=== PATIENT | male | born 1995 | race Caucasian/White ===

== ENCOUNTER 2022-12-24 17:58 | Emergency (ER) | payer OTHER, SELFPAY ==
--- NOTE | ~2022-12-24 | CT_ITS ---
EXAMINATION: CT ORBIT WITH CONTRAST CLINICAL INFORMATION: Right eye pain COMPARISON: None available. TECHNIQUE: Multidetector volumetric imaging of the orbits performed after administration of 85 mL of Omnipaque 350 IV contrast. Coronal and sagittal reformatted images are obtained and reviewed. This CT examination was performed using dose optimization techniques as appropriate, variously including the following: *Automated exposure control *Adjustment of mA and/or kV according to patient size (this includes techniques or standardized protocols for targeted exams where dose is matched to indication/reason for exam; i.e. extremities or head) *Use of iterative reconstruction technique DLP: 184 mGy-cm FINDINGS: No maxillofacial fracture. The pterygoid plates are intact. The lamina papyracea are intact. The zygomatic arches are intact. The nasal bone is intact. The orbital rims are intact. The nasal septum deviates to the right. The infundibula and middle meati are patent. There is minimal opacification of the left ethmoid air cells. Small mucus retention cyst in the left maxillary sinus. The remaining paranasal sinuses are well aerated. The orbits appear unremarkable. The globes are symmetric and intact. The extraocular muscles are intact. No preseptal or post septal inflammation. The visualized intracranial structures are without acute abnormality. No abnormal enhancement seen. CT/CT orbit BI w IV con IMPRESSION: Unremarkable appearance of the orbits.
[2022-12-24 18:35] VITALS: BP 131/94; PULSE 92; RESP 18; TEMP 36.8; O2SAT 98; BMI 26.5
--- NOTE | 2022-12-24 18:35 | ED_ITS ---
HPI - Eye Problem General Chief complaint: Eye Problems <EVER Pat Last Filed: 12/24/22 18:40> Stated complaint: Unable to see from R eye, blurred vision, swollen <EVER Pat Last Filed: 12/24/22 18:40> Time Seen by Provider: 12/24/22 19:40 <EVER Pat Last Filed: 12/24/22 18:40> Source: patient <EVER Limon Last Filed: 12/24/22 23:08> Mode of arrival: ambulatory <EVER Limon Last Filed: 12/24/22 23:08> Limitations: no limitations <EVER Limon Last Filed: 12/24/22 23:08> History of Present Illness HPI Narrative: 27-year-old male without significant medical history presenting the emergency department complaints of right eye discomfort, he feels like he has a film overlying his right eye in he is complaining of blurred vision, he states that this started this morning, he reports slight discomfort with movement of eyes and he reports that his right upper eyelid appears more swollen than usual. He also reports that at times he sees black spots. He denies trauma to the area. Patient wears glasses however no contact lenses. He denies any head trauma. Patient denies chest pain, shortness of breath, nausea, vomiting, double vision, dizziness, headache, weakness, foreign body sensation. <EVER Limon Last Filed: 12/24/22 23:08> Related Data Home medications: Previous Rx's Medication Instructions Recorded erythromycin 5 mg/gram (0.5 %) eye 1 appl ophthalmic (eye) DAILY #3.5 12/24/22 ointment grams <EVER Pat Last Filed: 12/24/22 18:40> Allergies/adverse reactions: Allergies Allergy/AdvReac Type Severity Reaction Status Date / Time ondansetron [From Zofran] Allergy Unknown Verified 12/24/22 18:40 promethazine [From Phenergan] Allergy Unknown Verified 12/24/22 18:40 <EVER Pat Last Filed: 12/24/22 18:40> Review of Systems Review of Systems: Constitutional : No Weight loss, No Fever, No Chills, No Fatigue, No Malaise ENT/Mouth : No sore throat, No Rhinorrhea Eyes: + Eye Pain, No Swelling, No Redness Cardiovascular : No Chest Pain, No SOB, No Dyspnea on Exertion, No Orthopnea, No Edema, No Palpitations Respiratory : No Cough, No Sputum, No Wheezing Gastrointestinal : No Nausea, No Vomiting, No Diarrhea, No Constipation, No abdominal Pain, No Hematochezia, No Melena Genitourinary : No Dysuria, No Urinary Frequency, No Hematuria, Musculoskeletal : No joint pain, No Myalgias, No Joint Swelling Skin : No Skin Lesions, No rash Neuro : No Weakness, No Numbness, No Dizziness, No Headache Psych : No Anxiety/Panic, No Depression All other systems reviewed and are negative <EVER Limon - Last Filed: 12/24/22 23:08> Yes all other systems are reviewed and are negative <EVER Limon - Last Filed: 12/24/22 23:08> [facility] Past Medical History Attestation statement: The following information was validated with the patient. <EVER Limon - Last Filed: 12/24/22 23:08> Source: old records reviewed and nursing notes reviewed <EVER Limon - Last Filed: 12/24/22 23:08> Social History Social History: Social History Advance Directives: No Advance Directives Information Provided: No <EVER Pat - Last Filed: 12/24/22 18:40> Physical Exam Vital Signs: Vital Signs: Last Vital Signs Temp 98.3 F 12/24/22 18:35 Pulse 92 12/24/22 18:35 Resp 18 12/24/22 18:35 BP 131/94 H 12/24/22 18:35 Pulse Ox 98 12/24/22 18:35 O2 Del Method Room Air 12/24/22 18:35 BMI result Body Mass Index 26.5 <EVER Pat Last Filed: 12/24/22 18:40> Vital Signs: Last Vital Signs Temp 98.3 F 12/24/22 18:35 Pulse 92 12/24/22 18:35 Resp 18 12/24/22 18:35 BP 131/94 H 12/24/22 18:35 Pulse Ox 98 12/24/22 18:35 O2 Del Method Room Air 12/24/22 18:35 BMI result Body Mass Index 26.5 vss <EVER Limon - Last Filed: 12/24/22 23:08> Appearance: Alert.? Oriented X3.? No acute distress.? Head: Normocephalic, atraumatic, no step-offs or deformities Eyes: Pupils equal, round and reactive to light.?EOMI and slightly uncomfortable. Funduscopic examination unremarkable able to visualized vessels in all 4 directions, normal cup to disc ratio, no bulging of the disc. No visualized FB in eyes b/l. + Stye to R upper eyelid Pressure to L eye: 19 R eye: 16 ENT: Pharynx normal.? Neck: Normal inspection.? Neck supple.? CVS: Normal heart rate and rhythm.? Pulses normal.? Respiratory: No respiratory distress.? Breath sounds normal.? Abdomen: Soft and nontender.? Skin: Skin warm and dry.? Normal skin color.? Normal skin turgor.? Extremities: No lower extremity edema.? No calf ttp. 5/5 strength to bilateral upper and lower extremities Back: No midline tenderness, no C-spine tenderness, full range of motion, no CVA tenderness bilaterally Neuro: Oriented X 3.? No motor deficit.? No sensory deficit. CN 2-12 intact <EVER Limon - Last Filed: 12/24/22 23:08> Course Course Course Narrative: RME: 37yo M w/PMHx psoriasis arthritis c/o R eye pain, blurry vision, and seeing black specs since waking this AM. Wears contacts no glasses. Denies trauma, FB sensation R eye with upper eyelid stye, EOMI w/pain Visual acuity, Tetricaine & fluorecein ordered Full HPI, ROS and PE to be performed by primary ED provider. <EVER Pat - Last Filed: 12/24/22 18:40> Reevaluation(s) Reevaluation #1: Laboratory studies unremarkable. CT of bilateral orbits with IV contrast unremarkable. No signs of orbital cellulitis. Likely stye. No signs of periorbital cellulitis. Low suspicion for this. Fluorescein stain unremarkable. Will have him follow-up with the printing film stripper. Educated patient on diagnosis and treatment plan, answered all question, patient verbalizes understanding. At this time patient will be discharged home, advised to return with new or worsening symptoms. Educated on worrisome signs and symptoms and when to return. At this time I feel comfortable discharge home. <EVER Limon - Last Filed: 12/24/22 23:08> Time: 22:42 <EVER Limon - Last Filed: 12/24/22 23:08> Reevaluation #2: Vanc I did do a fluorescein stain upon patient leaving, there is a linear corneal abrasion noted at the 6 o'clock position of patient's right eye, likely secondary to patient rubbing his eye. Negative Анна sign no signs of corneal ulcer globe rupture. Patient able to open his eyes and says his vision is no longer blurred. He has a follow-up appointment with a printing film stripper tomorrow at 09:45. Patient feeling better. Happy with his care. <EVER Limon - Last Filed: 12/24/22 23:08> Time: 23:07 <EVER Limon - Last Filed: 12/24/22 23:08> Medications Administered Discontinued Medications Generic Name Dose Route Start Last Admin Trade Name Freq PRN Reason Stop Dose Admin Erythromycin 1 cm 12/24/22 22:41 12/24/22 23:02 Erythromycin Base 0.5% Oph Oin 1 Gm Tube EYE-RIGHT 12/24/22 22:42 1 cm ONCE ONE Administration Fluorescein Sodium 1 strip 12/24/22 18:35 12/24/22 20:16 Fluorescein Sodium Strip EYE-RIGHT 12/24/22 18:36 1 strip ONCE ONE Administration Iohexol 100 ml 12/24/22 22:05 12/24/22 22:06 Iohexol 350 Mg/Ml 100 Ml Infus..Btl IV 12/24/22 22:06 85 ml ONCE ONE Administration Tetracaine HCl 1 drop 12/24/22 18:35 12/24/22 20:16 Tetracaine Hcl/Pf 0.5% Oph Jaky 4 Ml Drops EYE-RIGHT 12/24/22 18:36 1 drop ONCE ONE Administration <EVER Pat - Last Filed: 12/24/22 18:40> Medications Administered Discontinued Medications Generic Name Dose Route Start Last Admin Trade Name Rebel PRN Reason Stop Dose Admin Erythromycin 1 cm 12/24/22 22:41 12/24/22 23:02 Erythromycin Base 0.5% Oph Oin 1 Gm Tube EYE-RIGHT 12/24/22 22:42 1 cm ONCE ONE Administration Fluorescein Sodium 1 strip 12/24/22 18:35 12/24/22 20:16 Fluorescein Sodium Strip EYE-RIGHT 12/24/22 18:36 1 strip ONCE ONE Administration Iohexol 100 ml 12/24/22 22:05 12/24/22 22:06 Iohexol 350 Mg/Ml 100 Ml Infus..Btl IV 12/24/22 22:06 85 ml ONCE ONE Administration Tetracaine HCl 1 drop 12/24/22 18:35 12/24/22 20:16 Tetracaine Hcl/Pf 0.5% Oph Jaky 4 Ml Drops EYE-RIGHT 12/24/22 18:36 1 drop ONCE ONE Administration <EVER Limon - Last Filed: 12/24/22 23:08> Medical Decision Making Medical Decision Making [facility] Narrative: 2040 27-year-old male presents with right-sided blurred vision, reporting film feeling above his eye, in swelling to right upper eyelid that started this morning. Physical exam significant for Pupils equal, round and reactive to light.?EOMI and slightly uncomfortable. Funduscopic examination unremarkable able to visualized vessels in all 4 directions, normal cup to disc ratio, no bulging of the disc. No visualized FB in eyes b/l. + Stye to R upper eyelid Pressure to L eye: 19 R eye: 16 This is likely a stye. Unlikely wet macular degeneration, acute closed angle glaucoma, optic venous or arterial occlusion. Will obtain CT scan to rule out orbital cellulitis although unlikely however patient does have discomfort with eye movements. Will rule out foreign body in eye with fluorescein stain. Plan at this time labs, imaging, fluorescein stain visual acuity. <EVER Limon - Last Filed: 12/24/22 23:08> Differential Diagnosis Differential Diagnoses: The differential diagnosis associated with the presentation includes <EVER Limon - Last Filed: 12/24/22 23:08> This is likely a stye. Unlikely wet macular degeneration, acute closed angle glaucoma, optic venous or arterial occlusion. Will obtain CT scan to rule out orbital cellulitis although unlikely however patient does have discomfort with eye movements. Will rule out foreign body in eye with fluorescein stain. <EVER Limon - Last Filed: 12/24/22 23:08> Admission/Observation Consideration of admission/observation: Escalation of care including admission/observation considered <EVER Limon - Last Filed: 12/24/22 23:08> Unlikely <EVER Limon - Last Filed: 12/24/22 23:08> Lab Data MDM Lab Attestation statement: I reviewed the patient's lab results. <EVER Limon - Last Filed: 12/24/22 23:08> Result Diagrams: 12/24/22 20:38 12/24/22 20:38 <EVER Pat - Last Filed: 12/24/22 18:40> Labs: Lab Results 12/24/22 12/24/22 Range/Units 20:38 20:38 WBC 8.4 (4.8-10.8) X10*3/uL RBC 5.63 (4.60-5.80) X10*6/uL Hgb 16.1 (14.0-18.0) g/dl Hct 47.6 (42.0-52.0) % MCV 84.5 (80.0-98.0) fL MCH 28.6 (27.0-33.0) pg MCHC 33.8 (31.0-36.0) g/dl RDW 13.2 (11.0-16.0) % Plt Count 281 (160-400) X10*3/uL MPV 9.6 (9.4-12.4) fL Immature Gran % (Auto) 0.4 (0.0-0.4) % Neut % (Auto) 56.5 (45-73) % Lymph % (Auto) 32.1 (20-40) % [place] % (Auto) 7.1 (2-11) % Eos % (Auto) 3.3 (0-4) % Baso % (Auto) 0.6 (0-2) % Lymph # (Auto) 2.7 (1.2-4.9) X10*3/uL [place] # (Auto) 0.6 (0.1-1.2) X10*3/uL Eos # (Auto) 0.3 (0.0-0.4) X10*3/uL Baso # (Auto) 0.1 (0.0-0.2) X10*3/uL Abs Immat Gran (auto) 0.03 (0.00-0.03) X10*3/uL Absolute Neuts (auto) 4.8 (2.0-8.3) x10*3/uL Absolute Nucleated RBC 0.000 (0.0-0.012) X10*3/uL Nucleated RBC % (auto) 0.0 (0.0-0.2) /100WBC Sodium 141 (135-145) mmol/L Potassium 3.7 (3.3-5.1) mmol/L Chloride 106 (96-108) mmol/L Carbon Dioxide 26 (22-29) mmol/L Anion Gap 13 (12-20) BUN 9 (9-16) mg/dL Creatinine 0.79 (0.5-1.4) mg/dL Estim Creat Clear Calc 111.0 Estimated GFR > 60 Random Glucose 103 (60-115) mg/dL Calcium 9.6 (8.4-10.2) mg/dL Total Bilirubin 0.4 (0.0-1.0) mg/dL AST 27 (5-37) U/L ALT 41 H (0-40) U/L Alkaline Phosphatase 82 (39-117) U/L Total Protein 7.7 (6.5-8.0) g/dL Albumin 4.8 (3.5-5.0) g/dL <EVER Pat - Last Filed: 12/24/22 18:40> Lab Results 12/24/22 12/24/22 Range/Units 20:38 20:38 WBC 8.4 (4.8-10.8) X10*3/uL RBC 5.63 (4.60-5.80) X10*6/uL Hgb 16.1 (14.0-18.0) g/dl Hct 47.6 (42.0-52.0) % MCV 84.5 (80.0-98.0) fL MCH 28.6 (27.0-33.0) pg MCHC 33.8 (31.0-36.0) g/dl RDW 13.2 (11.0-16.0) % Plt Count 281 (160-400) X10*3/uL MPV 9.6 (9.4-12.4) fL Immature Gran % (Auto) 0.4 (0.0-0.4) % Neut % (Auto) 56.5 (45-73) % Lymph % (Auto) 32.1 (20-40) % [place] % (Auto) 7.1 (2-11) % Eos % (Auto) 3.3 (0-4) % Baso % (Auto) 0.6 (0-2) % Lymph # (Auto) 2.7 (1.2-4.9) X10*3/uL [place] # (Auto) 0.6 (0.1-1.2) X10*3/uL Eos # (Auto) 0.3 (0.0-0.4) X10*3/uL Baso # (Auto) 0.1 (0.0-0.2) X10*3/uL Abs Immat Gran (auto) 0.03 (0.00-0.03) X10*3/uL Absolute Neuts (auto) 4.8 (2.0-8.3) x10*3/uL Absolute Nucleated RBC 0.000 (0.0-0.012) X10*3/uL Nucleated RBC % (auto) 0.0 (0.0-0.2) /100WBC Sodium 141 (135-145) mmol/L Potassium 3.7 (3.3-5.1) mmol/L Chloride 106 (96-108) mmol/L Carbon Dioxide 26 (22-29) mmol/L Anion Gap 13 (12-20) BUN 9 (9-16) mg/dL Creatinine 0.79 (0.5-1.4) mg/dL Estim Creat Clear Calc 111.0 Estimated GFR > 60 Random Glucose 103 (60-115) mg/dL Calcium 9.6 (8.4-10.2) mg/dL Total Bilirubin 0.4 (0.0-1.0) mg/dL AST 27 (5-37) U/L ALT 41 H (0-40) U/L Alkaline Phosphatase 82 (39-117) U/L Total Protein 7.7 (6.5-8.0) g/dL Albumin 4.8 (3.5-5.0) g/dL <EVER Limon - Last Filed: 12/24/22 23:08> Independent Interpretation I performed an independent interpretation of an: CT Scan <EVER Limon - Last Filed: 12/24/22 23:08> Radiology Impression Discussion of test interpretation with radiology: I have reviewed the radiologist's reading. <EVER Limon - Last Filed: 12/24/22 23:08> Core Measures AMI core measures followed: Yes <EVER Limon - Last Filed: 12/24/22 23:08> Measure exclusions: not indicated <EVER Limon - Last Filed: 12/24/22 23:08> Critical Care Time Critical Care Time Critical Care Time: No <EVER Limon - Last Filed: 12/24/22 23:08> Discharge Plan Discharge Clinical Impression: Hordeolum eyelid, Discomfort of eye, Corneal abrasion <EVER Pat - Last Filed: 12/24/22 18:40> Patient Disposition: Home, Self-Care <EVER Pat - Last Filed: 12/24/22 18:40> Instructions: Stye (ED), Eye Pain (ED) <EVER Pat - Last Filed: 12/24/22 18:40> Additional Instructions: Take your medications as prescribed. If you were prescribed antibiotics today, it is important that you take your medication to their entirety, do not skip any doses, do not finish them early. Follow-up with your primary care provider this week. Return to the emergency department with new or worsening symptoms. Such as fevers, chills, chest pain, shortness of breath, nausea, vomiting, dizziness, headache, vision changes, lethargy In case of emergency call 911 Please only wear glasses do not wear any contact lenses. Please follow-up with ophthalmology tomorrow. Return with any new or worsening symptoms such as worsening pain, double vision, worsening vision, headache, vision changes, dizziness or weakness. Your laboratory studies and imaging was unremarkable. Apply warm compresses to the area CT/CT orbit BI w IV con IMPRESSION: Unremarkable appearance of the orbits. ? <EVER Pat - Last Filed: 12/24/22 18:40> Prescriptions: New erythromycin 5 mg/gram (0.5 %) ointment 1 appl ophthalmic (eye) DAILY Qty: 3.5 0RF <EVER Pat - Last Filed: 12/24/22 18:40> Referrals: Dez Dolan [Physician] - 1 day <EVER Pat - Last Filed: 12/24/22 18:40> Stand Alone Forms: Work/School Release <EVER Pat - Last Filed: 12/24/22 18:40>
[2022-12-24] MEDS: Fluorescein Sodium STRIP 1 STRIP EYE-RIGHT (20:16)
[2022-12-24] MEDS: Tetracaine HCl/PF 0.5% Oph Sol 4 ML DROPS 1 DROP EYE-RIGHT (20:16)
[2022-12-24 20:44] LABS: MANUAL DIFF FLAG NO
[2022-12-24 20:51] LABS: Basophils Absolute Auto 0.1 X10*3/uL (0.0-0.2); Basophils Percent Auto 0.6 % (0-2); Eosinophils Absolute Auto 0.3 X10*3/uL (0.0-0.4); Eosinophils Percent Auto 3.3 % (0-4); Hematocrit 47.6 % (42.0-52.0); Hemoglobin 16.1 g/dl (14.0-18.0); Imm Gran Abs Auto 0.03 X10*3/uL (0.00-0.03); Imm Gran Pct Auto 0.4 % (0.0-0.4); Lymphocytes Absolute Auto 2.7 X10*3/uL (1.2-4.9); Lymphocytes Percent Auto 32.1 % (20-40); Mean Corpuscular HGB Conc 33.8 g/dl (31.0-36.0); Mean Corpuscular Hemoglobin 28.6 pg (27.0-33.0); Mean Corpuscular Volume 84.5 fL (80.0-98.0); Mean Platelet Volume 9.6 fL (9.4-12.4); Monocytes Absolute Auto 0.6 X10*3/uL (0.1-1.2); Monocytes Percent Auto 7.1 % (2-11); Neutrophils Absolute Auto 4.8 x10*3/uL (2.0-8.3); Neutrophils Percent Auto 56.5 % (45-73); Platelet Count 281 X10*3/uL (160-400); Red Blood Count 5.63 X10*6/uL (4.60-5.80); Red Cell Distribution Width 13.2 % (11.0-16.0); White Blood Count 8.4 X10*3/uL (4.8-10.8)
[2022-12-24 21:12] LABS: Alanine Aminotransferase 41 U/L (0-40); Albumin Level 4.8 g/dL (3.5-5.0); Alkaline Phosphatase 82 U/L (39-117); Anion Gap 13 (12-20); Aspartate Amino Transferase 27 U/L (5-37); Bilirubin Total 0.4 mg/dL (0.0-1.0); Blood Urea Nitrogen 9 mg/dL (9-16); Calcium 9.6 mg/dL (8.4-10.2); Carbon Dioxide 26 mmol/L (22-29); Chloride 106 mmol/L (96-108); Estimated Glomerular Filt Rate > 60; Glucose Random 103 mg/dL (60-115); Potassium 3.7 mmol/L (3.3-5.1); Sodium 141 mmol/L (135-145); Total Protein 7.7 g/dL (6.5-8.0)
[2022-12-24] MEDS: iohexoL 350 MG/ML 100 ML INFUS..BTL IV (22:06)
[2022-12-24] MEDS: Erythromycin Base 0.5% Oph Oin 1 GM TUBE 1 CM EYE-RIGHT (23:02)
== END 2022-12-24 23:14 | disposition home or self-care (01) ==
PROVIDERS: Physician Assistant; Emergency Provider Emergency Medicine Emergency Medical Services; PCP Pediatrics
DX: H00.011 Hordeolum externum right upper eyelid (principal); S05.01XA Injury of conjunctiva and corneal abrasion without foreign body, right eye, initial encounter; X58.XXXA Exposure to other specified factors, initial encounter; Y93.9 Activity, unspecified; Y92.9 Unspecified place or not applicable; Y99.9 Unspecified external cause status
CPT/HCPCS: 36415; 70481; 80053; 85025; 99283; 99284; Q9967

== ENCOUNTER 2023-07-07 17:32 | Emergency (ER) | payer OTHER, SELFPAY ==
--- NOTE | ~2023-07-07 | US_ITS ---
EXAMINATION: US ABDOMEN LIMITED CLINICAL INFORMATION: Right upper quadrant pain COMPARISON: None available. TECHNIQUE: Real-time imaging of the right upper quadrant abdominal viscera. FINDINGS: PANCREAS: Normal. LIVER: Normal. The liver is normal in size. The liver contour is normal. Parenchymal echogenicity is normal. No focal hepatic lesion. There is no intrahepatic biliary duct dilatation seen. GALLBLADDER: Normal. The gallbladder is physiologically distended without evidence of stones, sludge, polyps, wall thickening or pericholecystic fluid. COMMON BILE DUCT: Normal in caliber measuring 0.23 cm in diameter. RIGHT KIDNEY: Normal. No hydronephrosis. No renal calculi or focal parenchymal lesions. The kidney measures 10.1 cm in maximum dimension. FREE FLUID: None. US/US abdomen limited IMPRESSION: Normal right upper quadrant ultrasound
--- NOTE | 2023-07-07 17:33 | ED.ABDPAIN ---
HPI - Abdominal Pain General Chief Complaint: Abdominal Pain Stated Complaint: abd pain Time Seen by Provider: 07/07/23 17:53 Source: patient Mode of arrival: ambulatory Limitations: no limitations History of Present Illness HPI narrative: Patient comes to the emergency room complaining of chronic abdominal pain. Patient states he has a combination of very soft bowel movements and diarrhea. Patient states that he has had colonoscopy in the past, no concrete diagnosis. Patient tried dicyclomine for IBS, patient could not tolerate the medication, patient kept losing consciousness with this medication. Patient denies any fever any chills. However, patient states that over the last week, the pain has gradually been getting much worse to the point that his crawled up in bed most of the time and unable to go to work. Patient denies bloody stools. Patient was seen at [facility] last week, states he had a urinalysis, blood work and a CT scan which was normal. Today, patient states the pain is a bit worse in the epigastric right upper quadrant area. Related Data Previous Rx's Medication Instructions Recorded erythromycin 5 mg/gram (0.5 %) eye 1 appl ophthalmic (eye) DAILY #3.5 12/24/22 ointment grams hyoscyamine sulfate 0.125 mg tablet 0.125 mg PO QID PRN dyspepsia #20 07/07/23 tabs Allergies Allergy/AdvReac Type Severity Reaction Status Date / Time ondansetron [From Zofran] Allergy Intermediate Vomiting Verified 07/07/23 17:35 promethazine [From Phenergan] Allergy Intermediate Itching Verified 07/07/23 17:35 Review of Systems Review of Systems Constitutional : No Weight loss, No Fever, No Chills, No Night Sweats, No Fatigue, No Malaise ENT/Mouth : No Hearing loss, No Ear Pain, No Nasal Congestion, No Sinus Pain, No Hoarseness, No sore throat, No Rhinorrhea, No Swallowing Difficulty Eyes: No Eye Pain, No Swelling, No Redness, No Foreign Body, No Discharge, No Vision Changes Cardiovascular : No Chest Pain, No SOB, No Dyspnea on Exertion, No Orthopnea, No Edema, No Palpitations Respiratory : No Cough, No Sputum, No Wheezing, No Smoke Exposure, No Dyspnea Gastrointestinal : Complaining of intermittent chronic nausea, soft bowel movements and watery diarrhea, diffuse abdominal pain cramping, today worse in the right upper quadrant/epigastric area Genitourinary : no irregular bleeding, No Dysuria, No Urinary Frequency, No Hematuria, No Urinary Incontinence, No Urgency, No Flank Pain, No Urinary Flow Changes, No Hesitancy Musculoskeletal : No joint pain, No Myalgias, No Joint Swelling Skin : No Skin Lesions, No rash Neuro : No Weakness, No Numbness, No Paresthesias, No Loss of Consciousness, No Dizziness, No Headache Psych : No Anxiety/Panic, No Depression, No SI/HI/AH/VH, No Social Issues, Heme/Lymph: No Bruising, No Bleeding,No Lymphadenopathy Endocrine : No Polyuria, No Polydipsia, No Temperature Intolerance [facility] Past Medical History Medical History (Updated 07/07/23 @ 19:50 by Rossy Bolaños MD) Psoriasis Social History Social History Smoked in Last 30 Days: No Use of substances other than those prescribed or required for medical reasons: Yes Substance Use Type: Crack/Cocaine Advance Directives: No Advance Directives Information Provided: No Physical Exam ED Vital Signs: Vital Signs - 24 hr 07/07/23 17:35 07/07/23 19:27 Temperature 97.5 F 98.4 F Pulse Rate 101 H 91 Respiratory Rate 18 18 Blood Pressure 130/97 H 125/86 Pulse Oximetry 98 96 Oxygen Delivery Method Room Air Room Air BMI result Body Mass Index 25.8 Const Other: Appearance: Alert. Oriented X3. No acute distress. Well-appearing Eyes: Pupils equal, round and reactive to light. ENT: Pharynx normal. Neck: Normal inspection. Neck supple. No lymph nodes noted. No crepitus CVS: Normal heart rate and rhythm. Pulses normal. Normal S1 and S2 Respiratory: No respiratory distress. Breath sounds normal. No Wheezing. No rales Abdomen: Soft mild discomfort throughout the entire abdomen, seemed to be worse in epigastric and right upper quadrant area, No rigidity. No distention. Skin: Skin warm and dry. Normal skin color. Normal skin turgor. Extremities: No lower extremity edema. No Lacerations. No Rash Neuro: Oriented X 3. No motor deficit. No sensory deficit. Moving all extremities. No slurred speech. CN 2 through 12 grossly intact Psych: calm, cooperative, normal affect Course Course Course Narrative: RME: 28yo M w/no sig PMHx presenting to the ED c/o abdominal pain worsening over the past few months. Admits was seen at [facility] ED last week, had CT scan/labs/UA that were unremarkable. Has GI f/u on the . +nausea and diarrhea & bloating. denies constipation, urinary sx Labs, UA ordered Full HPI, ROS and PE to be performed by primary ED provider. Medical Decision Making Medical Decision Making [facility] Narrative: -we have requested patient is from [facility], pending -patient receiving IV fluids, morphine, and phenobarb/hioscyamine/atropine 10 mL p.o. -discussed with the patient that he has a lot of GI symptoms that resemble celiac disease. Patient has history of psoriatic arthritis, patient is more prone to out to immune disorders. Discussed with the patient to try a gluten free diet until he sees Gastroenterology. -patient has an appointment pending for a colonoscopy and upper endoscopy. It is already scheduled. -my interpretation of labs: No acute abnormality seen hematology and chemistry. Ultrasound does not show any obvious abnormality. -patient's urine toxicology is positive for fentanyl and cocaine. Patient states that he does not use any drugs. -as mentioned above, patient has a GI consult pending Differential Diagnosis Differential Diagnoses: The differential diagnosis associated with the presentation includes (Pancreatitis, cholecystitis, celiac disease, IBS, gastroenteritis) Admission/Observation Consideration of admission/observation: Escalation of care including admission/observation considered (Given patient's symptoms, on arrival, admission was considered) Lab Data [facility] Lab Attestation statement: I reviewed the patient's lab results. 07/07/23 17:47 07/07/23 17:47 Labs: Lab Results 07/07/23 07/07/23 Range/Units 17:47 18:10 WBC 11.1 H (4.8-10.8) X10*3/uL RBC 5.58 (4.60-5.80) X10*6/uL Hgb 15.9 (14.0-18.0) g/dl Hct 47.3 (42.0-52.0) % MCV 84.8 (80.0-98.0) fL MCH 28.5 (27.0-33.0) pg MCHC 33.6 (31.0-36.0) g/dl RDW 13.2 (11.0-16.0) % Plt Count 384 D (160-400) X10*3/uL MPV 9.4 (9.4-12.4) fL Immature Gran % (Auto) 1.0 H (0.0-0.4) % Neut % (Auto) 65.1 (45-73) % Lymph % (Auto) 23.5 (20-40) % Coal % (Auto) 7.3 (2-11) % Eos % (Auto) 2.5 (0-4) % Baso % (Auto) 0.6 (0-2) % Lymph # (Auto) 2.6 (1.2-4.9) X10*3/uL Coal # (Auto) 0.8 (0.1-1.2) X10*3/uL Eos # (Auto) 0.3 (0.0-0.4) X10*3/uL Baso # (Auto) 0.1 (0.0-0.2) X10*3/uL Abs Immat Gran (auto) 0.11 H (0.00-0.03) X10*3/uL Absolute Neuts (auto) 7.2 (2.0-8.3) x10*3/uL Absolute Nucleated RBC 0.000 (0.0-0.012) X10*3/uL Nucleated RBC % (auto) 0.0 (0.0-0.2) /100WBC Sodium 139 (135-145) mmol/L Potassium 3.6 (3.3-5.1) mmol/L Chloride 105 (96-108) mmol/L Carbon Dioxide 24 (22-29) mmol/L Anion Gap 14 (12-20) BUN 11 (9-16) mg/dL Creatinine 0.83 (0.5-1.4) mg/dL Estim Creat Clear Calc 104.7 Estimated GFR > 60 Random Glucose 107 (60-115) mg/dL Calcium 9.4 (8.4-10.2) mg/dL Magnesium 2.0 (1.6-2.6) mg/dL Total Bilirubin 0.3 (0.0-1.0) mg/dL Direct Bilirubin 0.1 (0.0-0.5) mg/dL AST 18 (5-37) U/L ALT 37 (0-40) U/L Alkaline Phosphatase 93 (39-117) U/L Total Protein 8.1 H (6.5-8.0) g/dL Albumin 4.5 (3.5-5.0) g/dL Lipase 23 (8-78) U/L Urine Color Yellow Urine Appearance Turbid Urine pH 7.0 (5.0-9.0) Ur Specific [place] 1.020 (1.005-1.025) Urine Protein Negative (Neg-Trace) mg/dL Urine Glucose (UA) Negative (Negative) mg/dL Urine Ketones Negative (Negative) mg/dL Urine Blood Negative (Negative) Urine Nitrite Negative (Negative) Ur Leukocyte Esterase Trace H (Negative) Urine RBC 3-5 H (0-2) /HPF Urine WBC 0-5 (0-5) /HPF Ur Squamous Epith Cells 3-5 (0-2) /HPF Urine Bacteria Trace (None Seen) Hyaline Casts 0-2 (0-2) /LPF Urine Opiates Screen Not Detected (Not Detect) Urine Fentanyl Screen POSITIVE H (Not Detect) Ur Barbiturates Screen Not Detected (Not Detect) Ur Phencyclidine Scrn Not Detected (Not Detect) Ur Amphetamines Screen Not Detected (Not Detect) U Benzodiazepines Scrn Not Detected (Not Detect) Urine Cocaine Screen POSITIVE H (Not Detect) U Marijuana (THC) Screen Not Detected (Not Detect) Independent Interpretation I performed an independent interpretation of an: Ultrasound Radiology Impression Discussion of test interpretation with radiology: I have reviewed the radiologist's reading. Radiologist Impression: FINDINGS: PANCREAS: Normal. LIVER: Normal. The liver is normal in size. The liver contour is normal. Parenchymal echogenicity is normal. No focal hepatic lesion. There is no intrahepatic biliary duct dilatation seen. GALLBLADDER: Normal. The gallbladder is physiologically distended without evidence of stones, sludge, polyps, wall thickening or pericholecystic fluid. COMMON BILE DUCT: Normal in caliber measuring 0.23 cm in diameter. RIGHT KIDNEY: Normal. No hydronephrosis. No renal calculi or focal parenchymal lesions. The kidney measures 10.1 cm in maximum dimension. FREE FLUID: None. US/US abdomen limited IMPRESSION: Normal right upper quadrant ultrasound Medications Administered Discontinued Medications Generic Name Dose Route Start Last Admin Trade Name Freq PRN Reason Stop Dose Admin Belladonna Alkaloids/Phenobarbital 10 ml 11/05/23 18:08 07/07/23 18:43 Phenobarb/Hyoscy/Atropine/Scop 10 Ml Elixir PO 07/07/23 18:09 10 ml ONCE ONE Administration Sodium Chloride 1,000 mls @ 999 mls/hr 07/07/23 18:08 07/07/23 18:45 Ns IVCONT 07/07/23 19:08 999 mls/hr .Q1H1M ONE Administration Morphine Sulfate 4 mg 07/07/23 18:08 07/07/23 18:44 Morphine Sulfate 4 Mg/Ml Cartridge IVPUSH 07/07/23 18:09 4 mg ONCE ONE Administration Protocol Critical Care Time Critical Care Time Critical Care Time: Yes Total Critical Care Time: 45 Attestation: I have personally provided critical care time. Time includes review of lab data, radiology results, discussion with consultants, and monitoring for potential decompensation. Intervention performed as documented. Discharge Plan Discharge Clinical Impression: Chronic abdominal pain Patient Disposition: Home, Self-Care Instructions: Abdominal Pain (ED), Gluten-Free Diet (ED) Additional Instructions: Please try a strict gluten free diet. Please follow-up with your primary care physician tomorrow. If you have any worsening or new symptoms, please return to the emergency room or call 911 Prescriptions: New hyoscyamine sulfate 0.125 mg tablet 0.125 mg PO QID PRN (Reason: dyspepsia) Qty: 20 0RF No Action erythromycin 5 mg/gram (0.5 %) ointment 1 appl ophthalmic (eye) DAILY Qty: 3.5 0RF
[2023-07-07 17:35] VITALS: BP 130/97; PULSE 101; RESP 18; TEMP 36.4; O2SAT 98; BMI 25.8
[2023-07-07 17:53] LABS: MANUAL DIFF FLAG NO
[2023-07-07 17:54] LABS: Basophils Absolute Auto 0.1 X10*3/uL (0.0-0.2); Basophils Percent Auto 0.6 % (0-2); Eosinophils Absolute Auto 0.3 X10*3/uL (0.0-0.4); Eosinophils Percent Auto 2.5 % (0-4); Hematocrit 47.3 % (42.0-52.0); Hemoglobin 15.9 g/dl (14.0-18.0); Imm Gran Abs Auto 0.11 X10*3/uL (0.00-0.03); Lymphocytes Absolute Auto 2.6 X10*3/uL (1.2-4.9); Lymphocytes Percent Auto 23.5 % (20-40); Mean Corpuscular HGB Conc 33.6 g/dl (31.0-36.0); Mean Corpuscular Hemoglobin 28.5 pg (27.0-33.0); Mean Corpuscular Volume 84.8 fL (80.0-98.0); Mean Platelet Volume 9.4 fL (9.4-12.4); Monocytes Absolute Auto 0.8 X10*3/uL (0.1-1.2); Monocytes Percent Auto 7.3 % (2-11); Neutrophils Absolute Auto 7.2 x10*3/uL (2.0-8.3); Neutrophils Percent Auto 65.1 % (45-73); Platelet Count 384 X10*3/uL (160-400); Red Blood Count 5.58 X10*6/uL (4.60-5.80); Red Cell Distribution Width 13.2 % (11.0-16.0); White Blood Count 11.1 X10*3/uL (4.8-10.8)
[2023-07-07 18:12] LABS: Alanine Aminotransferase 37 U/L (0-40); Albumin Level 4.5 g/dL (3.5-5.0); Alkaline Phosphatase 93 U/L (39-117); Anion Gap 14 (12-20); Aspartate Amino Transferase 18 U/L (5-37); Bilirubin Direct 0.1 mg/dL (0.0-0.5); Bilirubin Total 0.3 mg/dL (0.0-1.0); Blood Urea Nitrogen 11 mg/dL (9-16); Calcium 9.4 mg/dL (8.4-10.2); Carbon Dioxide 24 mmol/L (22-29); Chloride 105 mmol/L (96-108); Creatinine Clr Calc Pharmacy 104.7; Estimated Glomerular Filt Rate > 60; Glucose Random 107 mg/dL (60-115); Lipase 23 U/L (8-78); Potassium 3.6 mmol/L (3.3-5.1); Sodium 139 mmol/L (135-145); Total Protein 8.1 g/dL (6.5-8.0)
[2023-07-07 18:19] LABS: Appearance Urine Turbid; Color Urine Yellow; Glucose Urine UA Negative (Negative); Leukocyte Esterase Urine Trace (Negative); Nitrite Urine Negative (Negative); UMIC TRIGGER UACC YES; Urine Blood Negative (Negative); Urine Ketones Negative (Negative); Urine Protein Negative (Neg-Trace)
[2023-07-07 18:29] LABS: Bacteria Urine Trace (None Seen); Hyaline Casts Urine 0-2 /LPF (0-2); WBC Urine 0-5 /HPF (0-5)
[2023-07-07 18:30] LABS: Amphetamine Screen Urine Not Detected (Not Detect); Barbiturates, Urine Not Detected (Not Detect); Benzodiazepines Screen Urine Not Detected (Not Detect); Cannabinoid Screen Urine Not Detected (Not Detect); Cocaine Screen Urine POSITIVE (Not Detect); Fentanyl, urine POSITIVE (Not Detect); Opiate Screen Urine Not Detected (Not Detect); Phencyclidine Screen Urine Not Detected (Not Detect)
[2023-07-07] MEDS: PHENobarb/Hyoscy/Atropine/Scop 10 ML ELIXIR PO (18:43)
[2023-07-07] MEDS: Morphine Sulfate 4 MG/ML CARTRIDGE IVPUSH (18:44)
[2023-07-07] MEDS: 0.9 % Sodium Chloride 1,000 ML 999 ML IVCONT (18:45)
[2023-07-07 19:27] VITALS: BP 125/86; PULSE 91; RESP 18; TEMP 36.9; O2SAT 96
--- NOTE | 2023-07-07 19:30 | PC.NURSE ---
patient reports pain decreased with pain medication administration. Fluids running at this time. Patient ambulated independently to bathroom with IV pole
--- NOTE | 2023-07-07 19:31 | PC.NURSE ---
late entry: 20g Iv placed in RAC
[2023-07-07 20:20] VITALS: BP 112/81; PULSE 91; RESP 16; TEMP 36.7; O2SAT 98
== END 2023-07-07 20:29 | disposition home or self-care (01) ==
PROVIDERS: Physician Assistant; Emergency Provider Emergency Medicine; PCP Pediatrics
DX: R10.11 Right upper quadrant pain (principal); R19.7 Diarrhea, unspecified; L40.9 Psoriasis, unspecified; Z79.899 Other long term (current) drug therapy
CPT/HCPCS: 36415; 76705; 80048; 80076; 80307; 81001; 83690; 83735; 85025; 96361; 96374; 99285; J2270

== ENCOUNTER 2025-08-09 23:03 | Emergency (ER) | payer OTHER, SELFPAY ==
--- NOTE | ~2025-08-09 | XR_ITS ---
CLINICAL HISTORY: chest pain 2 view chest x-ray Comparison: None provided Findings: No consolidation, pneumothorax, or pleural effusion. Cardiac silhouette within normal limits. Imaged osseous structures are unremarkable for technique. IMPRESSION: No consolidation. This document has been electronically signed by: Will Vyas MD on 08/10/2025 00:20:47
--- NOTE | 2025-08-09 23:05 | ECG_ITS ---
Test Reason : CP Blood Pressure : */* mmHG Vent. Rate : 78 BPM Atrial Rate : 78 BPM P-R Int : 160 ms QRS Dur : 80 ms QT Int : 344 ms P-R-T Axes : 44 7 41 degrees QTcB Int : 392 ms Normal sinus rhythm Normal ECG No previous ECGs available Referred By: Generic ED Physician Electronically Signed By: JESSICA MICHELLE MD
[2025-08-09 23:16] VITALS: BP 140/95; PULSE 84; RESP 20; TEMP 36.2; O2SAT 99; BMI 26.6
[2025-08-09 23:31] LABS: MANUAL DIFF FLAG NO
[2025-08-09 23:33] LABS: Hematocrit 43.6 % (42.0-52.0); Hemoglobin 15.0 g/dl (14.0-18.0); Imm Gran Abs Auto 0.02 X10*3/uL (0.00-0.03); Imm Gran Pct Auto 0.2 % (0.0-0.4); Lymphocytes Absolute Auto 3.0 X10*3/uL (1.2-4.9); Mean Corpuscular HGB Conc 34.4 g/dl (31.0-36.0); Mean Corpuscular Hemoglobin 29.5 pg (27.0-33.0); Mean Corpuscular Volume 85.7 fL (80.0-98.0); NRBC Abs Auto 0.000 X10*3/uL (0.0-0.012); NRBC Pct Auto 0.0 /100WBC (0.0-0.2); Platelet Count 328 X10*3/uL (160-400); Red Blood Count 5.09 X10*6/uL (4.60-5.80); White Blood Count 8.1 X10*3/uL (4.8-10.8)
[2025-08-09 23:48] LABS: Alanine Aminotransferase 53 U/L (0-40); Albumin Level 4.8 g/dL (3.5-5.0); Alkaline Phosphatase 91 U/L (39-117); Anion Gap 12 (12-20); Aspartate Amino Transferase 31 U/L (5-37); Blood Urea Nitrogen 14 mg/dL (9-16); Calcium 9.6 mg/dL (8.4-10.2); Carbon Dioxide 24 mmol/L (22-29); Chloride 107 mmol/L (96-108); Creatinine Clr Calc Pharmacy 121.9; Estimated Glomerular Filt Rate > 60; Potassium 3.6 mmol/L (3.3-5.1); Sodium 139 mmol/L (135-145); Total Protein 7.6 g/dL (6.5-8.0)
[2025-08-10 00:02] LABS: Troponin-I High Sensitivity < 2.7 ng/L (<3.5-35.0)
--- NOTE | 2025-08-10 00:08 | ED_ITS ---
HPI - Chest Pain General Chief Complaint: Chest Pain Stated Complaint: CP Time Seen by Provider: 08/10/25 00:08 Source: patient, family and old records reviewed Mode of arrival: ambulatory Limitations: no limitations History of Present Illness ED Provider: Dr. Neida Hope HPI narrative: 30-year-old male who presents to the Emergency Department for evaluation of acute onset chest pain, dizziness, and nausea that began last night. The patient reports: - Initial episode occurred while cleaning the bedroom; experienced sudden severe dizziness (?head was spinning?) followed by nausea and heavy, pressure-like chest pain described as ?an elephant sitting on my chest.? - Chest pain radiated to the upper abdomen; transient left arm pain noted but has resolved. - Associated symptoms: persistent nausea without vomiting, lightheadedness, ongoing episodic room-spinning dizziness, mild shortness of breath, and mild pleuritic component (pain increases with deep inspiration). - Denies syncope. Reports episode of shivering and teeth chattering last night (chills/rigors) without documented fever. No current fever. - Denies ear pain; endorses sinus congestion attributed to allergies. - Bowel movements: chronic diarrhea related to known severe IBS; no change from baseline and no hematochezia. - No similar prior episodes; felt well prior to yesterday. - No known dietary indiscretion; no other household members ill. Past medical history significant for severe IBS, psoriatic arthritis (on a biologic), depression, and anxiety with prior panic attacks (states current symptoms feel worse than typical panic attacks). Family history notable for early cardiac disease in father (early 40s) and brother, as well as grandmother in 70s. Daily medications include omeprazole and unspecified antidepressant/antianxiety agents. Received flu vaccination this season. Related Data Previous Rx's ?Medication ?Instructions ?Recorded erythromycin 5 mg/gram (0.5 %) eye 1 appl ophthalmic ( eye) DAILY #3.5 12/24/22 ointment grams hyoscyamine sulfate 0.125 mg tablet 0.125 mg PO QID DE N dyspepsia #20 07/07/23 tabs meclizine 25 mg tablet 25 mg PO TID PRN dizziness # 30 tabs 08/10/25 metoclopramide HCl 10 mg tablet 10 mg PO Q6H PRN nause a and 08/10/25 vomiting #10 tabs Allergies Allergy/AdvReac Type Severity Reaction Status Date / Time ondansetron (From Zofran) Allergy Intermediate Vomiting Verified 08/09/25 23:18 promethazine (From Phenergan) Allergy Intermediate Itching Verified 08/09/25 23:18 Review of Systems 2 Review of Systems: as per HPI, full review of systems performed and negative but for the above mentioned pertinent positives and negatives. [facility] Past Medical History Medical History Psoriasis Social History Social History Smoked in Last 30 Days: No Use of substances other than those prescribed or required for medical reasons: No Substance Use Type: Crack/Cocaine Advance Directives: No Advance Directives Information Provided: Yes Physical Exam 2 Exam: Exam: GENERAL: Ill-Appearing, appears uncomfortable. SKIN: Normal skin color for ethnicity, warm, dry, no rashes noted. HEENT:? Normocephalic, atraumatic, no stridor, dry mucous membranes, dentition intact, EOMI. NECK: Soft, supple, full ROM, midline structures nontender, no step-offs, no deformities, no lymphadenopathy. CHEST: Heart regular rhythm, no murmurs, symmetric chest rise and fall. PULMONARY: Clear to auscultation bilaterally, diminished at the bases, no labored breathing, no wheezes/rhales/rhonchi. ABDOMINAL: Soft, nondistended, nontender, positive bowel sounds in all quadrants. : Deferred. MUSCULOSKELETAL: Normal tone, full range of motion, no deformities, no peripheral edema. NEURO: Alert and oriented x3, CN II through XII intact, equal strength and sensation bilateral upper and lower extremities, no focal neurologic deficits.? PSYCHIATRIC: Flat affect, fluid speech, good eye contact and appropriate demeanor. Vital Signs: Vital Signs: Last Vital Signs Temp 97.2 F 08/09/25 23:16 Pulse 73 08/10/25 01:30 Resp 14 08/10/25 01:30 BP 129/97 H 08/10/25 01:30 Pulse Ox 99 08/10/25 01:30 O2 Del Method Room Air 08/10/25 01:30 BMI result Body Mass Index 26.6 Medications Administered Discontinued Medications Generic Name Dose Route Start Last Admin Trade Name Rebel PRN Reason Stop Dose Admin Lactated Ringer's 1,000 mls @ 999 mls/hr 08/10/25 00:48 08/10/25 01:30 Lr IV 08/10/25 01:48 999 mls/hr .Q1H1M ONE Administration Meclizine HCl 50 mg 08/10/25 00:48 08/10/25 01:21 Meclizine Hcl 25 Mg Tablet PO 08/10/25 00:49 50 mg ONCE ONE Administration Metoclopramide HCl 10 mg 08/10/25 00:48 08/10/25 01:22 Metoclopramide Hcl 10 Mg/2 Ml Vial IVPUSH 08/10/25 00:49 10 mg ONCE ONE Administration Procedures Ultrasound ED POC Ultrasound: EMERGENCY ULTRASOUND? INTERPRETATION-Limited Abdominal (Biliary)? The study reveals: Impression: No obvious findings of acute biliary pathology, negative Pascual's sign Indication: Epigastric abdominal pain with nausea? Gallbladder: No stones? Anterior Gallbladder Wall: <4mm, No pericholecystic fluid or edema. CBD: unable to visualize Performed by: Dr. Neida Hope D.O. Date:Time: 2:43 AM 08/10/2025 CPT: 07497; Reference Codes? https://bit.ly/[email or web address] ] Medical Decision Making Medical Decision Making MDM Narrative: Patient presents today with a chief complaint of chest pain, dizziness. Differential diagnosis includes, but is not limited to, acute coronary syndrome, musculoskeletal pain, pneumothorax, GERD, pleurisy, pulmonary embolism, dissection, among others. I will order EKG, chest x-ray, laboratory workup including cardiac enzymes to further evaluate for etiology. Diagnoses: * Chest pain, non-cardiac ? likely referred pain from gastrointestinal source. * Acute gastroenteritis vs biliary colic (await POCUS RUQ). * Episodic vertigo ? probable viral (peripheral) vertigo related to upper respiratory infection. * Nausea. Plan: * Perform bedside RUQ ultrasound to assess gallbladder for cholelithiasis/biliary colic. * Obtain influenza swab. * Administer anti-vertigo/anti-emetic medication (meclizine considered; metoclopramide if needed; avoid Zofran and Phenergan due to allergies). * Symptomatic treatment and observation; reassess response to therapy. ED Course: ? 12-lead EKG: normal; no ischemic changes or evidence of acute cardiac event. ? Serum cardiac enzyme (troponin): negative. ? Comprehensive metabolic panel: electrolytes, renal function, and liver enzymes within normal limits. ? CBC: no leukocytosis, anemia or TTP. ? Chest X-ray: clear; no infiltrate or mediastinal widening. ? Assessment discussion with patient outlined low likelihood of ACS, PE, aortic pathology, or pneumonia. ? Plan made to obtain bedside right upper quadrant ultrasound to evaluate gallbladder (biliary colic rule-out). ? Nasopharyngeal swab for influenza ordered due to high community prevalence and vague viral symptoms. ? Medications: anti-nausea/anti-vertigo agent planned (provider discussed meclizine; patient tolerates metoclopramide/Reglan; Zofran and Phenergan avoided due to documented adverse reactions). Bedside point of care ultrasound is negative for gallstones, pericholecystic fluid or thickened gallbladder wall. Unable to visualize the CBD. Patient is feeling significantly improved after Antivert and Reglan. Using shared decision making, plan for discharge home to follow-up with primary care and/or specialist. Patient understands and agrees with plan for discharge. Discharged home in stable condition. Differential Diagnosis Differential Diagnoses: The differential diagnosis associated with the presentation includes (as above) Lab Data MDM Lab Attestation statement: I reviewed the patient's lab results. 08/09/25 23:26 08/09/25 23:26 Labs: Lab Results 08/09/25 Range/Units 23:26 WBC 8.1 (4.8-10.8) X10*3/uL RBC 5.09 (4.60-5.80) X10*6/uL Hgb 15.0 (14.0-18.0) g/dl Hct 43.6 (42.0-52.0) % MCV 85.7 (80.0-98.0) fL MCH 29.5 (27.0-33.0) pg MCHC 34.4 (31.0-36.0) g/dl RDW 12.7 (11.0-16.0) % Plt Count 328 (160-400) X10*3/uL MPV 9.8 (9.4-12.4) fL Immature Gran % (Auto) 0.2 (0.0-0.4) % Neut % (Auto) 47.0 (45-73) % Lymph % (Auto) 37.2 (20-40) % [place] % (Auto) 10.9 (2-11) % Eos % (Auto) 4.0 (0-4) % Baso % (Auto) 0.7 (0-2) % Lymph # (Auto) 3.0 (1.2-4.9) X10*3/uL [place] # (Auto) 0.9 (0.1-1.2) X10*3/uL Eos # (Auto) 0.3 (0.0-0.4) X10*3/uL Baso # (Auto) 0.1 (0.0-0.2) X10*3/uL Abs Immat Gran (auto) 0.02 (0.00-0.03) X10*3/uL Absolute Neuts (auto) 3.8 (2.0-8.3) x10*3/uL Absolute Nucleated RBC 0.000 (0.0-0.012) X10*3/uL Nucleated RBC % (auto) 0.0 (0.0-0.2) /100WBC Sodium 139 (135-145) mmol/L Potassium 3.6 (3.3-5.1) mmol/L Chloride 107 (96-108) mmol/L Carbon Dioxide 24 (22-29) mmol/L Anion Gap 12 (12-20) BUN 14 (9-16) mg/dL Creatinine 0.70 (0.5-1.4) mg/dL Estim Creat Clear Calc 121.9 Estimated GFR > 60 Random Glucose 87 (60-115) mg/dL Calcium 9.6 (8.4-10.2) mg/dL Total Bilirubin 0.4 (0.0-1.0) mg/dL AST 31 (5-37) U/L ALT 53 H (0-40) U/L Alkaline Phosphatase 91 (39-117) U/L Troponin I High Sens < 2.7 (<3.5-35.0) ng/L Total Protein 7.6 (6.5-8.0) g/dL Albumin 4.8 (3.5-5.0) g/dL Independent Interpretation I performed an independent interpretation of an: EKG and Ultrasound Interpretation: My independent interpretation of the chest x-ray reveals no consolidations, pulmonary edema, pleural effusion, pneumothorax, obvious bony abnormalities. My independent interpretation of the ECG reveals normal sinus rhythm with rate of 78, normal axis, normal intervals, no ST elevations or depressions to suggest ischemic changes, no previous for comparison Radiology Impression Discussion of test interpretation with radiology: I have reviewed the radiologist's reading. Independent Historian Clinical information obtained from an independent historian. History obtained from or confirmed by: Spouse External Record Review External record reviewed: Inpatient record Prescription Management I considered prescription management with: Other (Antiemetic) Chronic Conditions Patient?s care impacted by: Other (IBS) Discharge Plan Discharge Clinical Impression: Acute chest pain, Benign paroxysmal positional vertigo, Gastroenteritis Patient Disposition: Home, Self-Care Instructions: Chest Pain (ED), Vertigo (ED) Additional Instructions: DIAGNOSIS & TREATMENT: You were seen in the Emergency Department for your chest discomfort. We performed an EKG, laboratory work and chest xray which did not reveal any acute abnormalities that would explain your symptoms. It is more than likely related to a viral gastroenteritis that is developing. Continue to use meclizine for vertigo symptoms and Reglan for nausea. FURTHER CARE: We have not found any emergent physical exam or lab abnormalities that would require admission to the hospital today. Many people who come to the ER with chest discomfortn do not leave with a specific diagnosis at the end of their visit. In the Emergency Department we try to make sure that there is no emergent problem that needs admission to the hospital or antibiotics right now. This does not mean that your evaluation is complete--please be sure to follow up with your regular doctor as additional testing as an outpatient may be indicated. Please be certain to drink plenty of fluids over the next several days. WHEN YOU SHOULD BE SEEN NEXT: Please follow-up with your primary care provider within the next 2-3 days for reevaluation of your symptoms. WHEN TO RETURN TO THE ED: Monitor your symptoms closely and return to the emergency department immediately for any new/worsening symptoms including: Worsening chest pain, difficulty breathing, fevers greater than 100 degrees, passing out, any new symptom that concerns you. Call 911 with any medical emergency. Prescriptions: New meclizine 25 mg tablet 25 mg PO TID PRN (Reason: dizziness) Qty: 30 0RF metoclopramide HCl 10 mg tablet 10 mg PO Q6H PRN (Reason: nausea and vomiting) Qty: 10 0RF No Action erythromycin 5 mg/gram (0.5 %) ointment 1 appl ophthalmic (eye) DAILY Qty: 3.5 0RF hyoscyamine sulfate 0.125 mg tablet 0.125 mg PO QID PRN (Reason: dyspepsia) Qty: 20 0RF Print Language: Faroese
[2025-08-10 01:07] VITALS: BP 140/100; PULSE 80; RESP 14
[2025-08-10 01:30] VITALS: BP 129/97; PULSE 73; RESP 14; O2SAT 99
[2025-08-10] MEDS: Lactated Ringers 1,000 ML 999 ML IV (01:30)
--- OUTSIDE RECORDS SUMMARY | 2025-08-10 02:39 | XMS_ITS | Encounter Summary ---
Author Organization [facility] Address [address] [place] [address] Care Team Providers Care Director Of Government Sales Name Role Phone Pillo Mccauley MD Primary Care Provider [phone] Encounter Details Date Type Department Care Team ([facility] Contact Info) Description 07/02/2025 Results Follow-Up Adult [address] [phone] Reji Schaffer, RN Social History Tobacco Use Types Packs/Day Years Used Date Smoking Tobacco: Never Smokeless Tobacco: Never Alcohol Use Standard Drinks/Week Comments Yes 0 (1 standard drink = 0.6 oz pur e alcohol) Housing Instability Answer Date Recorde d Are you worried that in the next 2 months you may not have stable housing? No 11/18/2024 Food Access & Nutrition Answer Date Rec orded Do you have access to a vari ety of food including fruits and vegetables? Yes 11/18/2024 Access to Healthcare Answer Date Record ed Within the last 3 months, ho w many times did you visit the emergency department for your medical care? 0 11/18/2024 Health Literacy Answer Date Recorded How often do you need to hav e someone help you when you read instructions, pamphlets, or other written material from your doctor or pharmacy? Never 11/18/2024 Caregiver: How often do you need to have someone help you when you read instructions, pamphlets, or other written material from your doctor or pharmacy? Not on file 11/18/2024 Financial Risk Answer Date Recorded How hard is it for you to pa y for the very basics like food, housing, medical care, and air conditioning / heating? Not very hard 11/18/2024 Transportation Answer Date Recorded Has the lack of transportati on kept you from meetings, work, or from getting things needed for daily living? No Has the lack of transportati on kept you from medical appointments or from getting medications? No 11/18/2024 Social Isolation Answer Date Recorded How often do you feel lonely or isolated from th ose around you? Never 11/18/2024 Food Risk Answer Date Recorded Within the past 12 months we worried whether our food would run out before we got money to buy more. Never true 11/18/2024 Within the past 12 months th e food we bought just didn't last and we didn't have money to get more. Never true 11/18/2024 Dependent Care Answer Date Recorded Do you need help finding or paying for care for your loved ones. For example, child welfare worker or elderly care for an older adult? No 11/18/2024 Education Answer Date Recorded Do you think completing more education or training, like finishing a GED, going to college, or learning a trade, would be helpful for you? No 11/18/2024 Employment and Income Answer Date Recor ded During the last four weeks, have you been actively looking for work? No 11/18/2024 Living Situation Answer Date Recorded What is your living situation? Unrecognized valu e 11/18/2024 Sex and Gender Information Value Date Recorded Sex Assigned at Not on file Legal Sex Male 12:18 PM EST Gender Identity Not on file Sexual Orientation Not on file documented as of this encounter Plan of Treatment Upcoming Encounters Date Type Department Care Team (Late st Contact Info) Description 07/04/2026 9:00 AM EST Office Visit Adult Medicine - [place] [address] [place] [phone] Pillo Mccauley MD [address] [place] [address] documented as of this encounter Visit Diagnoses Not on filedocumented in this encounter Care Teams Director Of Government Sales Relationship Specialty Start Date End Date Pillo Mccauley MD [address], [place] PCP - General Internal Medicine 04/06/15 documented as of this encounter
--- OUTSIDE RECORDS SUMMARY | 2025-08-10 02:39 | XMS_ITS | Clinical Summary ---
Author Organization [facility] Address [address] [place], [place] [id number] Phone Care Team Providers Care C Programmer Name Role Phone Pillo Mccauley MD Primary Care Provider [phone] Allergies Active Allergy Reactions Criticality Noted Date Comments Ondansetron Nausea And Vomiting 04/25/2015 Phenergan Dm Other (See Comments) 04/25/2015 Feeling like skin in crawling Promethazine 09/16/2024 Medications ENBREL SURECLICK 50 mg/mL (1 mL) PnIjIndications: Rheumatoid arthritis involving multiple sites with positive rheumatoid factor Inject 1 mL (50 mg total) under the skin every 7 days. 12 mL 1 3 Active Additional Information Patient not taking.Reported on 09/30/2024 buPROPion (WELLBUTRIN SR) 150 MG SR 12 hr tablet Take 1 tablet by mouth 2 (two) times a day. 4 Active busPIRone (BUSPAR) 7.5 MG tablet Take 7.5 mg by mouth. 4 Active celecoxib (CELEBREX) 100 MG capsule Take 100 mg by mouth. 4 Active SHARPS CONTAINER 4 Active diclofenac sodium (VOLTAREN) 1 % Gel Apply 4 g topically. 5 Active ibuprofen (ADVIL,MOTRIN) 200 MG tablet Take 200 mg by mouth every 6 hours as needed. Active TALTZ AUTOINJECTOR 80 mg/mL subcutaneous auto-injector 4 Active omeprazole (PRILOSEC) 20 MG capsule Take 20 mg by mouth daily. Active ustekinumab (STELARA) 45 mg/0.5 mL Syrg subcutaneous injection syringe Inject under the skin. Active Active Problems No known active problems Immunizations Immunization Administration Dates Next Due COVID-19 (Pre-06/24) Moderna Vaccine, mRNA, PF 12/29/2020,11/30/2020 Hepatitis B Adult 01/22/2019,07/31/2018,06/30/20 18 Influenza Quadrivalent Preservative Free IM 06/02 MMR 04/26/1998,05/09/1994 Tdap 12/26/2015 Social History Tobacco Use Types Packs/Day Years Used Date Smoking Tobacco: Never Smokeless Tobacco: Never Tobacco Cessation:Counseling Given: Not Answered Alcohol Use Standard Drinks/Week Comments Yes 0 (1 standard drink = 0.6 oz pur e alcohol) Education Answer Date Recorded Are you interested in more education? Not on anthony e 03/14/2023 Are you concerned about learning? Not on file 03/14/2023 No 03/14/2023 No 03/14/2023 Digital Access Answer Date Recorded No 03/14/2023 No 03/14/2023 Reliable internet access at home? Not on file 03/14/2023 Device with a working camera? Not on file Sex and Gender Information Value Date Recorded Sex Assigned at Not on file Legal Sex Male 1:10 PM EDT Gender Identity Not on file Sexual Orientation Not on file Last Filed Vital Signs Vital Sign Reading Time Taken Comments Blood Pressure 123/85 09/30/2024 2:42 PM EST Pulse 113 09/30/2024 2:42 PM EST Temperature 37.3 C (99.1 F) 09/30/2024 2:42 PM EST Respiratory Rate 20 09/30/2024 2:42 PM EST Oxygen Saturation 97% 09/30/2024 2:42 PM EST Inhaled Oxygen Concentration - - Weight 68 kg (150 lb) 09/30/2024 2:42 PM EST Height 160 cm (5' 3 ) 09/30/2024 2:42 PM EST Body Mass Index 26.57 09/30/2024 2:42 PM EST Plan of Treatment Upcoming Encounters Date Type Department Care Team ([facility] st Contact Info) Description 08/24/2025 9:15 AM EST Office Visit [facility] [address] [place] [phone] Estrellita Cleary PA-C [address] [place] [phone] Health Maintenance Due Date Last Done Comments DEPRESSION SCREENING 2005 HEPATITIS C SCREENING 2011 HIV ONE-TIME SCREENING (18-65 YEARS) 2011 PNEUMOCOCCAL VACCINES (0-49 years) (1 of 2 - PCV) 01/31/2012 COVID-19 VACCINE (3 - Moderna risk series) 01/26/2021 12/29/2020, 11/30/2020 INFLUENZA VACCINE (#1) 2025 , 06/26/2021, 09/03/2019, Additional history exists Adult Td,Tdap Booster 12/25/2025 12/26/2015 , 06/21/2014, 01/03/2009, Additional history exists HIB VACCINES Completed 05/09/1994, 03/1994, 1993, Additional history exists SMOKING STATUS SCREENING (Once After 26 Yrs) Completed 09/30/2024 HEPATITIS A VACCINES Aged Out No long er eligible based on patient's age to complete this topic MENINGOCOCCAL VACCINES (ACWY) Aged Out No longer eligible based on patient's age to complete this topic MENINGOCOCCAL VACCINES (B) Aged Out N o longer eligible based on patient's age to complete this topic Medical Devices Not on file [place] [address] [place] [address] [place] [address] [place] [address] [place] [address] [place] [address] [place] [address] [place] [address] [place] [address] [employer]CO [facility] [facility] Care Teams C Programmer Relationship Specialty Start Date End Date Pillo Mccauley MD [address] [place] [id number] PCP - General 03/30/20 Additional Source Comments The information contained in this document represents components of the legal health record. It is not the complete legal health record.[facility]
--- OUTSIDE RECORDS SUMMARY | 2025-08-10 02:39 | XMS_ITS ---
Author Name [facility] Organization Unknown Care Team Organization Name Specialty Phone Email Start Date End Da te [facility] Hollis Mccauley Primary [facility] 07/10/2022 04/20/2024
--- OUTSIDE RECORDS SUMMARY | 2025-08-10 02:39 | XMS_ITS | Patient Health Record ---
Author Organization [facility] Address [address] [place] [address] Care Team Providers Care Dispute Specialist Name Role Phone DILMA BOWMAN MD Primary Care Provider Unavail able EMILY Hendricks Unavailable [phone] Allergies Allergen (clinical drug ingredient) Drug/Non Drug Allergy documented on EMR Reaction Allergy Type Onset Date Status ZOFRAN (uncoded) Unknown Allergy Act phan promethazine Phenergan Unknown Drug Allergy Acti ve Reason For Referral No Information Medications Medication SIG (Take, Route, Frequency, Duration) Notes Start Date End Date Status Enbrel 50MG/CC INJECTION SQ 1X WEEK NAME ONLY Conversion from Multum Review and pick correct strength-formulat ion from [employer] options. If intended option is not shown, discontinue and re-order from Quick Search. Unknown Effexor XR 150 MG Capsule Extended Release 24 Hour 1 cap(s) orally once a day; Duration: 30 day(s) Unknown Naproxen 250 MG Tablet 1 tab(s) orally prn 200mg Unknown Multivitamin 1 TAB ONCE DAILY NAME ONLY Conversion from Multum Review and pick correct strength-formulat ion from Advactionan options. If intended option is not shown, discontinue and re-order from Quick Search. 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 Past year's travels: [place] alcohol use: yes 2 drinks a week drug use: no Hobbies/Exercise habits: walking , hiking, outdoor recreational activities Coffee/Tea/Soda: yes Coffee 1 cup a day Marital Status single experience no smokers in household yes parther mot her and brother smokes in household, Pt never smoke Problems Problem Type SNOMED Code ICD Code Onset Dates Problem Status W/U Status Risk Notes Problem Psoriatic arthritis (491490710) Psoriatic arthritis (L40.50) Active confirmed Plan Of Treatment Future Test Test Name Order Date ESR 11/16/2021 ALBUMIN 11/16/2021 Hep C Antibody 11/16/2021 Hep B Surface Antigen 11/16/2021 AST ( SGOT) 11/16/2021 CREATININE 11/16/2021 CRP 11/16/2021 CBC W/ AUTOMATED DIFF 11/16/2021 CCP (Cyclic Citrulline Peptide AB IgG) 0 11/16/2021 ALT(DO NOT USE) 11/16/2021 RHEUMATOID FACTOR 11/16/2021 Hep B Surface Antibody Qual 11/16/2021 QuantiFERON TB Gold Plus, 1 Tube(QUEST /BRL) 11/16/2021 Insurance Providers Payer Name Payer Address Payer Phone Subscriber Number Group Number Insured Name Patient Relationship to Insured Coverage Start Date Coverage End Date [facility] [employer] [address] [address] [place] [address] [phone] [id number] [id number] Self - patient is the insured Medications Administered Medication Instructions Date of Administration Dosage Notes Triamcinolone Acetonide, mul ti-dose vial, 11/08/2021 60 mg Medical (General) History Medical History History ICD Code Psoriatic arthritis Major depressive disorder Migraine headaches Passive suicidal ideation Obsessional thoughts Anxious depression Convulsions Surgical History Surgery Date(Month/Year)
--- OUTSIDE RECORDS SUMMARY | 2025-08-10 02:39 | XMS_ITS | Clinical Summary ---
Author Organization [facility] Address [address] [place] [address] Phone Care Team Providers Care Automation Specialist Name Role Phone Pillo Mccauley MD Primary Care Provider [phone] Allergies Active Allergy Reactions Criticality Noted Date Comments Ondansetron Nausea And Vomiting 04/25/2015 Phenergan Dm Other 04/25/2015 Feeling like skin in crawling Medications ibuprofen (ADVIL,MOTRIN) 200 mg tablet Take 200 mg by mouth every 6 hours as needed. Active omeprazole (PriLOSEC) [address] capsule Take 1 capsule by mouth once daily 06/02/2024 Active buPROPion SR (WELLBUTRIN SR) 150 mg 12 hr tablet Take 1 tablet by mouth twice daily 180 tablet 09/15/2024 Active dicyclomine (BENTYL) 10 mg capsule TAKE 2 CAPSULES BY MOUTH THREE TIMES DAILY NEEDED FOR LOOSE STOOLS 10/15/2024 Active risankizumab-rz aa (Skyrizi) 150 mg/mL pen injector Inject 150 mg under the skin. Active Active Problems Problem Noted Date Diagnosed Date Irritable bowel syndrome with diarrhea Episode of recurrent major depressive disorder 1 Concentration deficit 09/23/2020 Obsessional thoughts 09/23/2020 Passive suicidal ideations 09/23/2020 Diverticulitis 06/05/2019 Overview (07/28/2024): Followup CT never done 06/20- letter sent 09/21. Pt did not respond to GI referral. Psoriasis 09/30/2017 Psoriatic arthritis 09/28/2016 Overview (07/28/2024): Onset~ 2014. Methotrexate started 2015 - 04/2019 - stopped due to elevated transaminases Humira added October 2017 - But ineffective 01/[address] of Humira 03/2019 Generalized anxiety disorder 11/14/2015 ADHD (attention deficit hyperactivity disorder) 05/24/2015 Anxious depression 05/24/2015 Overview (07/28/2024): Admission for suicidal ideation 2010; psych admit [place] 01/13 Intolerant zoloft Convulsion 05/11/2015 Encounters Date Type Department Care Team Description 07/07/2025 Telephone Adult Medicine [address] [address] Sandoval Perez MA 07/02/2025 Results Follow-Up Adult [address] [address] Reji Schaffer RN 07/01/2025 12:00 PM EDT Lab Draw Station [address] [address] Screening, lipid 07/01/2025 11:30 AM EDT Office Visit Adult [address] [address] Pillo Mccauley MD Routine general medical examination at a health care facility (Primary Dx); Screening, lipid; Generalized anxiety disorder; Irritable bowel syndrome with diarrhea from Last 3 Months Immunizations Immunization Administration Dates Next Due DTP 02/11/1995, 3,1993,1992 DTaP (Infanrix) 6wks to less than 7yo 04/26/1998 LMdV-UPC-LHR (Pentacel) 2mo to less than 5yo 05/09/1994,1993,1993,1992 Hepatitis B (Otftahr-R-Hitjx , Recombivax HB-Adult) 19yo and older 01/22/2019,07/31/2018,06/30/2018 Influenza Quadravalent, MDCK , 0.5ml, preservative free (Flucelvax) 6mo and older 06/26/2021,09/03/2019 Influenza Quadravalent, MDCK , 0.5ml, with preservative (Flucelvax) 6mo and older 06/30/2018,06/06/2017 Influenza trivalent, 0.5mL, preservative free (Fluarix; FluLaval; Fluzone) ages 6mo and older (Afluria) 3 years and older 05/14/2016,05/11/2015 Influenza trivalent, MDCK, 0 .5mL, preservative free (Flucelvax) 6mo and older 07/01/2025 MMR, measles mumps and rubel la Live (Priorix; M-M-R II) 12mo and older 04/26/1998,05/09/1994 OPV 04/26/1998, 5,1993,1992 PPD Test 05/14/2016 Td Tetanus diptheria (Tdvax) 7yo and older 04/10/2005 Tdap Tetanus diptheria acell ular pertussis (Boostrix; Adacel) 7yo and older 12/26/2015,01/03/2009 Medical History Medical History Date Comments Seizures ([facility] V24, [facility] V28) DX:Seizures ([facility]); COMMENT: starting in 2014 Hx of migraines DX:Hx of migrain es; COMMENT: 2009 ADHD (attention deficit hype ractivity disorder) 05/24/2015 DX:ADHD (attention deficit hyperactivity disorder) Depression 05/24/2015 DX:Depression; C OMMENT: Admission for suicidal ideation 2010 Psoriatic arthritis ([facility] V24, [facility] V28) 09/28/2016 DX:Psoriatic arthritis ([facility]) Family History Medical History Relation Name Comments Asthma Brother alive Heart attack Father alive Heart attack Maternal Grandmother HTN, al phan Arthritis Mother hx RA Other: vertigo Mother HTN, alive Relation Name Status Comments Brother Father Maternal Grandmother Mother Social History Tobacco Use Types Packs/Day Years [...] for your loved ones. For example, child psychologist or elderly care for an older adult? [...] Sign Reading Time Taken Comments Blood Pressure 126/88 07/01/2025 11:23 AM EDT Pulse 102 07/01/2025 11:23 AM EDT Temperature 36.9 C (98.4 F) 07/01/2025 11:23 AM EDT Respiratory Rate - - Oxygen Saturation - - Inhaled Oxygen Concentration - - Weight 69.3 kg (152 lb 12.8 oz) 025 11:23 AM EDT Height 160 cm (5' 3 ) 07/01/2025 11:23 AM EDT Body Mass Index 27.07 07/01/2025 11:23 AM EDT Plan of Treatment Upcoming Encounters Date Type Department Care Team (Late st Contact Info) Description 07/04/2026 9:00 AM EST Office Visit Adult Medicine [facility] [address] [place] [address] Pillo Mccauley MD [address] [place] [address] Health Maintenance Due Date Last Done Comments HPV Vaccines (1 - 3-dose SCDM series) 01/31/2020 Depression Screening 09/02/2024 01/28/2024 COVID-19 Vaccine ( season) 2025 12/29/2020, 11/30/2020 Social Influencers of Health Screening 11/18/2025 11/18/2024 DTaP,Tdap,and Td Vaccines (10 - Td or Tdap) 12/25/2025 12/26/2015, 06/21/2014, 01/03/2009, Additional history exists Cholesterol Screening (Lipid Panel) 07/01/2030 07/01/2025, 09/30/2017 RSV Immunization Adult Patients (1 - 1-dose 75+ series) 01/31/2068 HIB Vaccines Completed 05/09/1994, 0 03/1994, 1993, Additional history exists IPV Vaccines Completed 04/26/1998, 01/31, 05/09/1994, Additional history exists MMR Vaccines Completed 04/26/1998, 05/09/1994 HIV Screening Completed 04/25/2015 Hepatitis C Screening Completed 06/06/2017 Hepatitis B Vaccines Completed 01/22/2019, 07/31/2018, 06/30/2018 Influenza Vaccine Completed 07/01/2025, , 06/26/2021, Additional history exists Hepatitis A Vaccines Aged Out No long er eligible based on patient's age to complete this topic Meningococcal ACWY Vaccine Aged Out N o longer eligible based on patient's age to complete this topic Meningococcal B Vaccine Aged Out No l onger eligible based on patient's age to complete this topic Pneumococcal Vaccine: Pediatrics (0 to 5 Years) and At-Risk Patients (6 to 49 Years) Aged Out No longer eligible based on patient's age to complete this topic RSV Immunization Patients Under 20 months Aged Out No longer eligible based on patient's age to complete this topic Varicella Vaccines Aged Out No longer eligible based on patient's age to complete this topic Procedures Procedure Name Priority Date/Time Associated Diagnosis Comments LIPID PANEL WITH REFLEX TO DIRECT LDL Routine 07/01/2025 11:56 AM EDT Screening, lipid DEPRESSION SCREENING Routine 01/28/2024 HEPATITIS C SCREENING Routine 06/06/2017 HIV SCREENING Routine 04/25/2015 from Last 3 Months or Most Recently Relevant to Health Maintenance Results * (ABNORMAL) Lipid panel with reflex to direct LDL (07/01/2025 11:56 AM EDT) Cholesterol 219(H) 0 - 200 mg/dL LAB CHEMISTRY METHOD 07/01/2025 3:32 PM EDT [facility] Triglycerides 141 0 - 150 mg/dL LAB CHEMISTRY METHOD 07/01/2025 3:32 PM EDT [facility] HDL 43 >=40 mg/dL LAB CHEMISTRY METHOD 07/01/2025 3:32 PM EDT [facility] LDL Calculated 148(H) 0 - 100 mg/dL LAB CHEMISTRY METHOD 07/01/2025 3:32 PM EDT [facility] Comment:Estimated LDL Calcul ated using equation: Total cholesterol - HDL cholesterol - (Triglycerides/5) VLDL Cholesterol Sanju 28.2 mg/dL LAB CHEMISTRY METHOD 07/01/2025 3:32 PM EDT [facility] Non HDL Chol. (LDL+VLDL) 176(H) <145 mg/dL LAB CHEMISTRY METHOD 07/01/2025 3:32 PM EDT [facility] Chol/HDL Ratio 5.1(H) 0.0 - 4.4 LAB CHEMISTRY METHOD 07/01/2025 3:32 PM EDT [facility] Blood Venous blood specimen / Unknown Venipuncture / Unknown 07/01/2025 11:56 AM EDT 07/01/2025 11:57 AM EDT C Luca Mccauley MD LAB BLOOD ORDERABLES Final Res ult [facility] [address] [place] [address], * Depression Screening (01/28/2024) Depression Screening abstracted Historical Lisa [employer] Final Result * Hepatitis C Screening (06/06/2017) Pathologist [facility] Hepatitis C Screening abstracted Historical [facility] [employer] Final Result * HIV Screening (04/25/2015) Pathologist [facility] HIV Screening abstracted Historical [facility] [employer] Final Result from Last 3 Months or Most Recently Relevant to Health Maintenance Insurance [facility] Care Teams Automation Specialist Relationship Specialty Start Date End Date Pillo Mccauley MD [address] [place] [address] PCP - General Internal Medicine 04/06/15
[2025-08-10 02:44] LABS: COVID-19 Test Negative (Negative); IDNOW Serial# 55D5AD1C; IDNOW Serial# 58CA691E; Influenza B2 Negative (Negative)
[2025-08-10 03:09] VITALS: BP 129/97; PULSE 73; RESP 14; TEMP 36.6; O2SAT 99
== END 2025-08-10 03:11 | disposition home or self-care (01) ==
PROVIDERS: Emergency Provider Emergency Medicine
DX: R07.9 Chest pain, unspecified (principal); H81.10 Benign paroxysmal vertigo, unspecified ear; K52.9 Noninfective gastroenteritis and colitis, unspecified; R11.0 Nausea
CPT/HCPCS: 36415; 71046; 80053; 84484; 85025; 87502; 87635; 93005; 96361; 96374; 99284; J2765; J7120

== ENCOUNTER → 2025-08-09 23:05 | Outpatient (BNV) | payer OTHER, SELFPAY | PROVIDERS: Emergency Provider Emergency Medicine; Visit Provider Internal Medicine Cardiovascular Disease | DX: R00.0 Tachycardia, unspecified (principal) | CPT/HCPCS: 93010 ==

== ENCOUNTER → 2025-08-09 23:19 | Outpatient (BNV) | payer OTHER, SELFPAY | PROVIDERS: Emergency Provider Emergency Medicine; Visit Provider Radiology Neuroradiology | DX: R07.9 Chest pain, unspecified (principal) | CPT/HCPCS: 71046 ==